=== PATIENT | female | born 1960 | race Caucasian/White ===

== ENCOUNTER 2021-06-23 17:32 | Emergency (ER) | payer OTHER ==
[~2021-06-23] VITALS: Ht 157.5 cm; Wt 80.7 kg
--- NOTE | 2021-06-23 18:00 | NUR ---
Dr barrera at the bedside for [facility].
[2021-06-23] MEDS ORDERED: KETOROLAC TROMETHAMINE 60 MG INJ IM ONE ×2 (18:15→18:20)
[2021-06-23 18:26] LABS: HEMATOCRIT 42.4 % (31.2-41.9); MEAN CORPUSCULAR HEMOGLOBIN 29.2 uug (24.7-32.8); MEAN CORPUSCULAR VOLUME 86.7 fL (75.5-95.3); PLATELET COUNT (AUTO) 341 K/uL (179-408)
[2021-06-23 18:33] LABS: POTASSIUM 3.8 mmol/L (3.5-5.1)
[2021-06-23 18:39] LABS: BILIRUBIN,TOTAL 0.2 mg/dL (0.2-1.0); TOTAL PROTEIN, SERUM 7.9 g/dL (6.4-8.2)
[2021-06-23] MEDS ORDERED: VANCOMYCIN IV 1,000 MG in IV DEXTROSE 5% 250 ML IV ONE (19:15)
[2021-06-23] MEDS ORDERED: ONDANSETRON 4 MG/2 ML VIAL IV ONE (19:15)
[2021-06-23] MEDS ORDERED: CEFTRIAXONE 1 G in IV DEXTROSE 5% 50 ML IV ONE (19:15)
[2021-06-23] MEDS ORDERED: METRONIDAZOLE 500 MG/NS 100 ML PIGGYBACK IV ONE (19:15)
[2021-06-23] MEDS ORDERED: HYDROMORPHONE 1 MG/1 ML DISP.SYRIN IV ONE ×2 (19:15→23:45)
[2021-06-23] MEDS ORDERED: HYDROMORPHONE 1 MG/1 ML DISP.SYRIN ONE ×2 (19:52→23:42)
[2021-06-23] MEDS ORDERED: METRONIDAZOLE 500 MG/NS 100ML 100 ML IV ONE (19:52)
[2021-06-23] MEDS ORDERED: ONDANSETRON 4 MG/2 ML VIAL ONE (19:52)
[2021-06-23] MEDS ORDERED: CEFTRIAXONE /D5W 50ML IVPB **ER PYXIS IV ONE (19:53)
--- NOTE | 2021-06-23 20:05 | NUR ---
Spoke with Edenilson from [facility] [phone] for higher level of care transfer. no beds available at this time per Edenilson
--- NOTE | 2021-06-23 20:09 | NUR ---
Spoke with Angle from [facility] for higher level of care transfer center [phone]. no hand surgeons available at this time
--- NOTE | 2021-06-23 20:12 | NUR ---
Spoke with [facility] for higher level of care transfer with no Hand specialists available. [phone]
--- NOTE | 2021-06-23 20:13 | NUR ---
Spoke with [facility] for higher level of care transfer with no Hand specialists available. [phone]
--- NOTE | 2021-06-23 20:14 | NUR ---
Spoke with [facility] transfer center for higher level of care transfer. per Victoria will present to Hand specialists available. will fax the following information: face sheet, ER MD notes, Imaging, labs to [phone]
--- NOTE | 2021-06-23 20:24 | NUR ---
Spoke with Chao from [facility] for higher level of care transfer with no Hand specialists available. [phone]
--- NOTE | 2021-06-23 20:26 | NUR ---
Spoke with Mariel from [place] for higher level of care transfer. Per Mariel they are at capacity at this time. [phone]
[2021-06-23] MEDS ORDERED: VANCOMYCIN IV 200 ML ONE (21:10)
--- NOTE | 2021-06-23 21:30 | NUR ---
Spoke with Ce from [facility] and given authorization code below for facility and transportation authorization: [id number] TRANSPORT change LAST 2 digits 04
--- NOTE | 2021-06-23 21:45 | NUR ---
called [facility] for higher level of care transfer and was informed that they are capped at this time
--- NOTE | 2021-06-23 21:54 | NUR ---
Spoke with Ce again and was told that no hospitals are available at this time and given her resources available will have to wait until tomorrow morning for a porter sample case to look over the case. Patient informed of situation
[2021-06-24] MEDS ORDERED: METRONIDAZOLE 500 MG/NS 100 ML PIGGYBACK IV ONE (07:30)
[2021-06-24] MEDS ORDERED: METRONIDAZOLE 500 MG/NS 100ML 100 ML IV ONE (07:45)
--- NOTE | 2021-06-24 08:06 | NUR ---
hospital dinner tray provided for pt.
--- NOTE | 2021-06-24 08:45 | NUR ---
called Bhavani our case hardener, she said that she already reviewed the case and has contacted pt's insurance. bhavani will call back with any updates.
--- NOTE | 2021-06-24 09:00 | NUR ---
pt says that the swell/pain has decreased.
--- NOTE | 2021-06-24 11:46 | NUR ---
Patient does not wish to proceed with medical care recommended by Dr. Loraine cunningham ). Patient given information related to possible complications, up to and including , which could occur as a result of leaving the hospital at this time. Patient verbalizes understanding of risks involved due to leaving against medical advice. Patient has signed AMA form. pt said will follow up today,with the [place]o doctor that she [place], [place] [facility] [place]
== END 2021-06-24 11:51 | disposition left against medical advice (07) ==
LOC: ER 17:34
DX: M65.841 Other synovitis and tenosynovitis, right hand (principal); Z53.29 Procedure and treatment not carried out because of patient's decision for other reasons; Z88.0 Allergy status to penicillin; M19.90 Unspecified osteoarthritis, unspecified site
CPT/HCPCS: 29130; 36415; 73130; 80053; 85025; 85730; 87040 ×2; 87426; 96365; 96366 ×2; 96367; 96368; 96372; 96375; 96376; 99285; J0696; J1170 ×2; J1885; J2405; J3370; J3490 ×2; A4663